=== PATIENT | female | born 1995 | race African-American/Black ===

== ENCOUNTER 2020-01-21 05:50 | Inpatient (IN) | payer OTHER, SELFPAY ==
[2020-01-21] VITALS (139 sets, daily range): BP systolic 77–145; BP diastolic 43–84; PULSE 72–123; RESP 18; TEMP 36.6; O2SAT 98–100; BMI 22.0
--- NOTE | 2020-01-21 06:16 | WPDANESEPP ---
Anes - Eval Pre Procedure Procedure: Labor epidural Date/Time: 01/21/20 06:16 Surgeon: Kraig Preop Diagnosis: pain during labor Pre Op Diagnosis: Induction of Labor Patient Data Age: 24 Gender: F Height: Weight: Allergies Allergy/AdvReac Type Severity Reaction Status Date / Time Penicillins Allergy Mild HIVES Verified 07/20/12 14:40 Sulfa (Sulfonamide Allergy Hives Verified 12/30/19 12:52 Antibiotics) Home Medications Medication Instructions Recorded Confirmed Type PNV cmb#95-ferrous fumarate-FA 1 tablet PO DAILY 12/30/19 12/30/19 History [] albuterol mcg INHALATION 12/30/19 History Patient hx anesthesia problems: none Family hx anesthesia problems: none PMFSH Past Medical History Medical History (Updated 01/21/20 @ 06:16 by Sandra Fry CRNA) Asthma Social History Social History Substance use: never Gender identity (if verbalized by the patient): Female Spiritual care concerns: No Exam Day of Procedure 01/21/20 06:16
--- NOTE | 2020-01-21 07:15 | LDADM ---
This patient, Jeanette Chua, was admitted to Labor/Delivery/Recovery 102 on 01/21/20 at 05:50. Plans for labor, pain management and were discussed with patient. Patient/family oriented to hospital policies and general routines including ID bracelet, bed and alarms, visiting hours, pain management, procedures, bathroom and other care routines, personal items, smoking policy, room service/diet and guest tray routines, infant security routines, call light, and visiting hours. Patient/Family are encouraged to report perceived risks to care and to ask questions if they do not understand what they are told or what they should do. See OBIX for further documentation.
[2020-01-21 07:25] LABS: Basophils Percent Auto 0.3 % (0.2-1.2); Eosinophils Absolute Auto 0.1 K/mm3 (0-0.3); Eosinophils Percent Auto 1.3 % (0-4.4); Hematocrit 32.7 % (37.0-47.0); Hemoglobin 10.5 g/dL (12.0-15.0); Immature Granulocyte Absolute 0.03 K/mm3 (0.00-0.031); Immature Granulocyte Percent A 0.5 % (0-0.5); Lymphocytes Absolute Auto 1.68 K/mm3 (0.9-3.2); Lymphocytes Percent Auto 26.8 % (18.3-44.2); Mean Corpuscular HGB Conc 32.1 g/dl (32-36); Mean Corpuscular Hemoglobin 28.8 pg (26-34); Mean Corpuscular Volume 89.8 fl (80-100); Mean Platelet Volume 9.7 fl (7.4-10.4); Monocytes Absolute Auto 0.6 K/mm3 (0.1-0.6); Monocytes Percent Auto 9.7 % (2.6-8.5); Neutrophils Absolute Auto 3.8 K/mm3 (1.3-6.7); Neutrophils Percent Auto 61.4 % (45.5-73.1); Platelet Count Result 205 k/mm3 (150-375); Red Blood Count 3.64 M/mm3 (4.2-5.4); White Blood Count 6.3 K/mm3 (4.5-10.0)
--- NOTE | 2020-01-21 08:01 | WPDOBADMIT ---
Obstetrics - Admit Note Admission Note: record reviewed. No pertinent additions to the history and/or any subsequent changes in the physical findings that are not consistent with the expected course of the were found. Additions to the history and/or subsequent changes in the physical findings follow. eIOL 39 weeks, uncomplicated. /post. Pit and AROM. GBS neg. FHT category 1.
[2020-01-21] MEDS: LACTATED RINGERS 1,000 ML 125 ML IV CONT ×2 (08:08→11:03)
[2020-01-21] MEDS: OXYTOCIN 30 UNITS/NS 500 ML 30 UNITS/500 ML BAG IV CONT (08:10)
--- NOTE | 2020-01-21 10:41 | PM.OBPNVD ---
OB - PN: Subj Subjective Date/time seen: 01/21/20 10:41 AROM - clear - 4/50/-2 Reassuring FHT - to have epidural OB - PN: Obj Data Labs CBC & Chem 7: 01/21/20 07:09 Labs: Laboratory Results - last 24 hr 01/21/20 01/21/20 07:09 07:09 WBC 6.3 RBC 3.64 L Hgb 10.5 L Hct 32.7 L MCV 89.8 MCH 28.8 MCHC 32.1 RDW 15.0 H Plt Count 205 MPV 9.7 Immature Gran % (Auto) 0.5 Neut % (Auto) 61.4 Lymph % (Auto) 26.8 [place] % (Auto) 9.7 H Eos % (Auto) 1.3 Baso % (Auto) 0.3 Lymph # (Auto) 1.68 [place] # (Auto) 0.6 Eos # (Auto) 0.1 Baso # (Auto) 0.0 Abs Immat Gran (auto) 0.03 Absolute Neuts (auto) 3.8 Absolute Nucleated RBC 0.0 Nucleated RBC % 0.0 Blood Type O Positive Antibody Screen Negative OB - PN A/P Time Spent With Patient Time: Total time spent is greater than 50% in coordination of care (as documented) at patient's floor/unit and/or counseling patient:
[2020-01-21 10:53] LABS: Rapid Plasma Reagin Non-Reactive (NonReactive)
--- NOTE | 2020-01-21 17:19 | P.PNOB_ITS ---
OB - PN: Subj Subjective Date/time seen: 01/21/20 17:19 Narrative: comfortable. 9cm. FHT category 1. Anticipate . OB - PN: Obj Data Labs CBC & Chem 7: 01/21/20 07:09 Labs: Laboratory Results - last 24 hr 01/21/20 01/21/20 01/21/20 07:09 07:09 07:09 WBC 6.3 RBC 3.64 L Hgb 10.5 L Hct 32.7 L MCV 89.8 MCH 28.8 MCHC 32.1 RDW 15.0 H Plt Count 205 MPV 9.7 Immature Gran % (Auto) 0.5 Neut % (Auto) 61.4 Lymph % (Auto) 26.8 [place] % (Auto) 9.7 H Eos % (Auto) 1.3 Baso % (Auto) 0.3 Lymph # (Auto) 1.68 [place] # (Auto) 0.6 Eos # (Auto) 0.1 Baso # (Auto) 0.0 Abs Immat Gran (auto) 0.03 Absolute Neuts (auto) 3.8 Absolute Nucleated RBC 0.0 Nucleated RBC % 0.0 RPR Non-reactive Blood Type O Positive Antibody Screen Negative OB - PN A/P Time Spent With Patient Time: Total time spent is greater than 50% in coordination of care (as documented) at patient's floor/unit and/or counseling patient:
--- NOTE | 2020-01-21 19:35 | PM.OBPRVD ---
OB - Delivery Note Procedure Delivery date: 01/21/20 Procedure: events: Labor Induction Induction method: per pitocin protocol Delivery monitor: external FHT Route of delivery: Laceration Description: None Estimated blood loss (mL): 300 Anesthesia type: Epidural Disposition: floor Narrative: With adequate expulsive efforts by the mother, the baby's head was delivered OA. The baby's anterior shoulder was delivered under the pubic symphysis without difficulty. The posterior shoulder and the rest of the baby delivered without difficulty. The infant was placed on the mothers chest and suctioned and stimulated. The cord was clamped and cut after 30 seconds. Mother and baby both stable. Baby Date of : 01/21/20 Time of : 19:20 Weeks of gestation at delivery: 39 gender: Female Weight (pounds): 7 Weight (ounces): 6 presentation: vertex position: Right Occiput Anterior Placenta delivery description: Spontaneous cord vessel description: 3 Vessels and Nuchal Cord score one minute: 8 score five minutes: 8
[2020-01-21] MEDS: OXYTOCIN 30 UNITS/NS 500 ML 30 UNITS/500 ML BAG 125 UNITS IV CONT (20:00)
[2020-01-21] MEDS: IBUPROFEN 600 MG TABLET PO (21:41)
[2020-01-21] MEDS: WITCH HAZEL 40 PADS 1 PAD TOPICAL (21:42)
[2020-01-21] MEDS: BENZOCAINE 20% AER SPR (*SP) 56 GM CAN 1 SPRAY TOPICAL (21:42)
--- NOTE | 2020-01-21 22:04 | OBPPTRN ---
Patient transferred to post room #277 via wheelchair. Support person present. Oriented to unit, room, information board, rooming in, admission packet and security measures. Patient verbalizes understanding.
[2020-01-22] MEDS: IBUPROFEN 600 MG TABLET PO (03:53)
[2020-01-22 05:32] LABS: Hematocrit 29.9 % (37.0-47.0); Hemoglobin 9.6 g/dL (12.0-15.0)
[2020-01-22 07:40] VITALS: BP 97/57; PULSE 74; RESP 18; TEMP 37.3; O2SAT 100
--- NOTE | 2020-01-22 07:54 | P.PNOB_ITS ---
OB - PN: Subj Subjective Date/time seen: 01/22/20 07:54 Patient comments: no complaints and pain well controlled baby status: doing well [place] feeding status: exclusively bottle feeding Narrative: Some back pain at epidural site. Otherwise doing great! Home tomorrow. OB - PN: Obj Data Labs CBC & Chem 7: 01/22/20 03:59 Labs: Laboratory Results - last 24 hr 01/21/20 01/21/20 01/22/20 07:09 07:09 03:59 Hgb 9.6 L Hct 29.9 L RPR Non-reactive Blood Type O Positive Antibody Screen Negative OB - PN A/P Plan day: 1 Plan: routine care Time Spent With Patient Time: Total time spent is greater than 50% in coordination of care (as documented) at patient's floor/unit and/or counseling patient: Time with patient: less than 15 minutes Exam Narrative: Exam Narrative: NAD abdomen soft, nontender, fundus firm below the umbilicus Extremities nontender, no edema
[2020-01-22] MEDS: ACETAMINOPHEN 325 MG TABLET 650 MG PO (08:32)
--- NOTE | 2020-01-22 09:51 | WPDANLDPN2 ---
Anes-Prog Note L&D Date/Time: 01/22/20 09:51 Comfortable throughout: labor and delivery Neuraxial method: epidural Epidural/Spinal procedure site: clean & non-tender Neuro status: Neuro function grossly intact. Cardiovascular status: normal Respiratory status: normal Airway patency: baseline Mental status: baseline Post-Op hydration status: normal Vital Signs: Last Vital Signs Temp 37.3 C 01/22/20 07:40 Pulse 74 01/22/20 07:40 Resp 18 01/22/20 07:40 BP 97/57 L 01/22/20 07:40 Pulse Ox 100 01/22/20 07:40 Pain score (VAS): 0 I/O: Intake & Output 01/21/20 01/22/20 01/22/20 23:59 07:59 15:59 Intake Total 1500 500 Output Total 64 Balance 1436 500 Post-procedural complaints: none Patient feedback: Patient satisfied with anesthetic care.
[2020-01-22] MEDS: DOCUSATE SODIUM LIQ 100 MG/10 ML UDC PO ×2 (11:10→19:24)
[2020-01-22] MEDS: IBUPROFEN SUSPENSION 200 MG/10 ML UDC 600 MG PO ×2 (11:11→16:45)
[2020-01-22] MEDS: FERROUS SULFATE LIQUID 325 MG/7.4 ML ELIXIR PO ×2 (11:11→19:24)
[2020-01-22] MEDS: ACETAMINOPHEN ELIXIR 325 MG/10.15 ML UDC 650 MG PO (16:46)
[2020-01-22 20:00] VITALS: BP 107/54; PULSE 73; RESP 16; TEMP 36.7; O2SAT 98
[2020-01-23] MEDS: IBUPROFEN SUSPENSION 200 MG/10 ML UDC 600 MG PO (00:28)
[2020-01-23] MEDS: ACETAMINOPHEN ELIXIR 325 MG/10.15 ML UDC 650 MG PO ×2 (00:28→09:08)
[2020-01-23 07:40] VITALS: BP 107/73; PULSE 80; RESP 18; TEMP 36.9; O2SAT 99
--- NOTE | 2020-01-23 07:58 | PM.OBPNVD ---
OB - PN: Subj Subjective Date/time seen: 01/23/20 07:58 Patient comments: no complaints baby status: doing well OB - PN: Obj Data Labs CBC & Chem 7: 01/22/20 03:59 OB - PN A/P Plan day: 2 Plan: routine care and discharge home (F/U in 4 weeks) Time Spent With Patient Time: Total time spent is greater than 50% in coordination of care (as documented) at patient's floor/unit and/or counseling patient: Time with patient: less than 15 minutes Review of Systems Review of Systems: All systems reviewed & are unremarkable except as noted in HPI and below Exam Narrative: Exam Narrative: Fundus firm and vaginal flow controlled. No lower ext redness, warmth, or edema. Negative homans. Const: General: comfortable Chest: Breast/axilla inspection: normal inspection of the breasts Resp: Effort & Inspection: normal respiratory effort Cardio: Rate: regular rate GI: GI Palp: Yes Soft to palpation Psych: Appearance: grossly normal Affect: normal affect Attitude: cooperative Thought content: Yes Normal thought content present Judgement: Good judgement present (Psych)
--- NOTE | 2020-01-23 08:00 | PM.OBDSVD ---
DS: Admitting Diagnosis Admitting Diagnosis Admitting Diagnosis: Induction of Labor OB - DS: Summary OB Procedures : None OB Procedures Intrapartum: Spontaneous Vag Delivery OB Procedures: : None Time Spent with Patient Time attestation: Total time spent providing and/or coordinating discharge services: Discharge Plan Discharge Discharging Clinician: Farheen Rodríguez Patient Disposition: Home, Self-Care Activity: pelvic rest Diet: as tolerated Patient Instructions: Antibiotic Form Stand Alone Forms: General Discharge Information Follow-up/Referrals: Jeni Cornell MD [Physician] - Discharge Medications: New ferrous sulfate 220 mg (44 mg iron)/5 mL Elixir 325 mg PO BID Qty: 473 RF: 0 Continued albuterol 90 mcg/actuation Aerosol INHALATION RF: 0 PNV cmb#95-ferrous fumarate-FA [] 28 mg iron- 800 mcg Tablet 1 tablet PO DAILY RF: 0 Date of admission: 01/21/20 05:50 Primary Care Provider: PHYSICIAN,P[employer] INSTRUCTOR Admitting Provider: Jeni Cornell Attending physician on admission: Jeni Cornell Condition: Stable
--- NOTE | 2020-01-23 08:49 | PC.NURSE ---
Abdominal binder and incentive spirometer given to pt and explained use and purpose of each. Pt states understanding.
[2020-01-23] MEDS: DOCUSATE SODIUM LIQ 100 MG/10 ML UDC PO (09:08)
[2020-01-23] MEDS: FERROUS SULFATE LIQUID 325 MG/7.4 ML ELIXIR PO (09:09)
[2020-01-24 08:25] VITALS: BP 129/80; PULSE 76; RESP 16; TEMP 36.8
== END 2020-01-23 11:20 | disposition home or self-care (01) | DRG 560 ==
LOC: ANHLDR 07:35 → ANHOB2 01-23 08:00 → ANHLDR 01-24 17:42 → ANHOB2 01-24 17:42
PROVIDERS: Admitting Provider Obstetrics & Gynecology; Visit Provider Obstetrics & Gynecology
DX: O69.81X0 Labor and delivery complicated by cord around neck, without compression, not applicable or unspecified (principal); Z3A.39 39 weeks gestation of pregnancy; Z37.0 Single live birth
CPT/HCPCS: 36415; 85014; 85018; 85025; 86592; 86850; 86900; 86901; A9270; J2590; J2795; J7120

== ENCOUNTER 2021-12-22 09:11 | Emergency (ER) | payer OTHER, SELFPAY ==
--- NOTE | ~2021-12-22 | CT_ITS ---
EXAMINATION: CT abdomen pelvis w con DATE: 12/22/2021 14:55 INDICATION: Low abdominal pain. TECHNIQUE: Computed tomography (CT) of the abdomen and pelvis was performed with 100 mL Omnipaque 350 intravenous contrast. Automated exposure control and iterative reconstruction technique were employe d. The dose-length product was 315.86 mGy-cm. COMPARISON: None. FINDINGS: The visualized portions of the lung bases are clear without pneumonia or pleural effusion. The heart size is normal. No pericardial effusion. The liver demonstrates focal steatosis in the gall bladder fossa. There are gallstones in the gallbladder, which is normal in size. The spleen, pancreas , adrenal glands, and kidneys are normal. There are no dilated loops of bowel. The appendix is normal . There are no pathologically enlarged lymph nodes. There is physiologic fluid in the pelvis. The bon es are unremarkable. IMPRESSION: 1. Cholelithiasis. Reviewed, dictated and finalized at location B. IMPRESSION: 1. Cholelithiasis.
--- NOTE | ~2021-12-22 | US_ITS ---
EXAMINATION: US pelvic complete DATE: 12/22/2021 12:32 INDICATION: Pelvic pain. TECHNIQUE: Multiple transabdominal sonographic images of the pelvis were obtained. COMPARISON: None. FINDINGS: The uterus measures 7.8 x 5.1 x 3.9 cm. There is no free fluid in the pelvis. The endometrial complex measures 5 mm in thickness. The ovaries are not visualized. IMPRESSION: 1. Normal uterus. Ovaries not visualized. Reviewed, dictated and finalized at location B.
[2021-12-22 09:18] VITALS: BP 141/71; PULSE 84; RESP 16; TEMP 37; O2SAT 100
[2021-12-22 09:58] LABS: Alanine Aminotransferase 19 U/L (6-35); Albumin Level 4.5 g/dL (3.5-5.1); Alkaline Phosphatase 52 U/L (38-126); Anion Gap 13 mmol/L (8-16); Aspartate Amino Transferase 28 U/L (14-36); Bilirubin,Total 0.5 mg/dL (0.2-1.3); Blood Urea Nitrogen 10 mg/dL (7-17); Calcium 9.1 mg/dL (8.4-10.2); Carbon Dioxide 21 mmol/L (22-30); Chloride 104 mmol/L (98-107); Estimated CRCL calculation 113 ml/min; Estimated Glomerular Filt Rate > 60; Glucose 90 mg/dL (65-110); Lipase 54 U/L (23-300); Potassium 3.6 mmol/L (3.4-5.0); Sodium 138 mmol/L (137-145)
--- NOTE | 2021-12-22 12:00 | PC.NURSE ---
pt wheeled to room 7 with open bag of chips and bottle of tea
--- NOTE | 2021-12-22 12:06 | ED.ABDPAIN ---
HPI - Abdominal Pain General Chief Complaint: Abdominal Pain Stated Complaint: abd pain, hx pelvic congestion Time Seen by Provider: 12/22/21 12:04 Source: patient Limitations: no limitations History of Present Illness HPI narrative: Patient is a 26-year-old female presenting to the emergency department for evaluation of lower abdominal pain. Patient reports onset lower abdominal pain yesterday that is aching in nature. Patient reports this in her lower pelvic area. She denies any vaginal bleeding or discharge. Patient states that she very has normal menstrual cycles with LMP beginning of December. Patient states she is currently in the middle of her cycle. She denies any flank pain. Patient has not taken any medication for pain. She denies fever, chills, nausea or vomiting. She denies recent intercourse. She denies history of sex transmitted infection. Patient does not believe she is . Patient denies focal pain in the right lower quadrant or flanks. Patient denies dysuria, hematuria, diarrhea or constipation. She denies abdominal distention. Patient states she has been diagnosed with pelvic congestion syndrome. Related Data Home Medications Medication Instructions Recorded Confirmed albuterol 90 mcg/actuation aerosol mcg inhalation 12/30/19 inhaler vit no.95-ferrous 1 tablet PO DAILY 12/30/19 12/30/19 fumarate 28 mg-folic acid 800 mcg tablet () Allergies Allergy/AdvReac Type Severity Reaction Status Date / Time Penicillins Allergy Mild HIVES Verified 12/22/21 09:22 Sulfa (Sulfonamide Allergy Hives Verified 12/22/21 09:22 Antibiotics) trimethoprim Allergy Unknown Verified 12/22/21 09:22 Review of Systems Review of Systems: CONSTITUTIONAL: Denies fever, chills, or sweats. EYES: Denies visual changes, redness, or discharge. ENT: Denies rhinorrhea, congestion, sore throat, or otalgia. CARDIOVASCULAR: Denies chest pain, palpitations, or edema. RESPIRATORY: Denies cough or dyspnea. GASTROINTESTINAL: Reports pelvic pain, denies nausea, vomiting, diarrhea GENITOURINARY: Denies dysuria or hematuria. Denies vaginal bleeding or discharge. SKIN: Denies rash or itching. MUSCULOSKELETAL: Denies back pain, joint pain, or myalgia. NEUROLOGIC: Denies headache, numbness, or weakness. [facility] Past Medical History Medical History (Updated 12/22/21 @ 15:08 by Margie Ramos MD) Abdominal pain Asthma Pelvic congestion syndrome Social History Social History Smoking status: Never smoker Substance use: never Gender identity (if verbalized by the patient): Female Spiritual care concerns: No Exam Narrative: GENERAL: Awake, alert, conversant HEAD: Normocephalic, atraumatic. EYES: PERRLA and EOMI. ENT: Nares clear, no rhinorrhea or epistaxis. Mucous membranes moist. NECK: Supple. CHEST: No respiratory distress, breathing even and non labored HEART: Regular rate, sinus rhythm ABDOMEN:Non distended, non tender on exam. No reproducible tenderness in all 4 quadrants. No rebound, rigidity or guarding. No flank tenderness bilaterally. EXTREMITIES: Normal range of motion. No edema. SKIN: Warm, dry, no rash. NEURO:No focal deficits. Alert and oriented x3 Course Vital Signs Vital signs: Vital Signs Temperature 37.0 C 12/22/21 09:18 Pulse Rate 84 12/22/21 09:18 Respiratory Rate 16 12/22/21 09:18 Blood Pressure 141/71 H 12/22/21 09:18 Pulse Oximetry 100 12/22/21 09:18 Oxygen Delivery Room Air 12/22/21 09:18 Temperature 37.0 C 12/22/21 09:18 Pulse Rate 84 12/22/21 09:18 Respiratory Rate 16 12/22/21 09:18 Blood Pressure 141/71 H 12/22/21 09:18 Pulse Oximetry 100 12/22/21 09:18 Oxygen Delivery Room Air 12/22/21 09:18 MDM - Abdominal Pain MDM Narrative Medical decision making narrative: Patient presenting for evaluation of abdominal pain in the lower abdomen. At the time
[2021-12-22 13:22] LABS: Basophils Absolute Auto 0.1 K/mm3 (0.0-0.1); Basophils Percent Auto 0.9 % (0.2-1.2); Eosinophils Absolute Auto 0.2 K/mm3 (0-0.3); Hematocrit 38.6 % (37.0-47.0); Hemoglobin 12.6 g/dL (12.0-15.0); Immature Granulocyte Absolute 0.02 K/mm3 (0.00-0.031); Immature Granulocyte Percent A 0.3 % (0-0.5); Lymphocytes Absolute Auto 2.48 K/mm3 (0.9-3.2); Lymphocytes Percent Auto 31.9 % (18.3-44.2); Mean Corpuscular HGB Conc 32.6 g/dl (32-36); Mean Corpuscular Hemoglobin 30.4 pg (26-34); Monocytes Absolute Auto 0.4 K/mm3 (0.1-0.6); Monocytes Percent Auto 5.4 % (2.6-8.5); Neutrophils Absolute Auto 4.6 K/mm3 (1.3-6.7); Neutrophils Percent Auto 58.5 % (45.5-73.1); Platelet Count Result 346 k/mm3 (150-375); Red Blood Count 4.15 M/mm3 (4.2-5.4); Red Cell Distribution Width 13.7 % (11.5-14.5); White Blood Count 7.8 K/mm3 (4.5-10.0)
[2021-12-22 13:45] LABS: Add Urine Microscopic? YES; Appearance Urine Cloudy (Clear); Bacteria Urine Trace /hpf; Bilirubin Urine Negative (Negative); Blood Urine 1+ (Negative); Color Urine Yellow (Yellow); Glucose Urine UA Negative (Negative); Ketones Urine Negative (Negative); Leukocyte Esterase Ur Negative LEU/UL (Negative); Mucus Urine Rare /lpf; Nitrate Urine Negative (Negative); Protein Urine Negative (Negative); RBC Urine 0-2 /hpf (0-2); Specific Grav Ur 1.012 (1.001-1.035); Squamous Epithelial Cell Urine Moderate /hpf (Few); Urobilinogen Urine Negative mg/dL (<2.0); WBC Urine 0-3 /hpf
[2021-12-22] MEDS: ACETAMINOPHEN 500 MG TABLET 1000 MG PO (14:22)
[2021-12-22] MEDS: KETOROLAC (*BKC) 60 MG/2 ML VIAL 30 MG IM (14:22)
[2021-12-22 15:39] VITALS: BP 140/84; PULSE 86; RESP 18; O2SAT 99
== END 2021-12-22 15:44 | disposition home or self-care (01) ==
PROVIDERS: Emergency Medicine; Emergency Provider Emergency Medicine; PCP Physician Assistant
DX: K80.20 Calculus of gallbladder without cholecystitis without obstruction (principal); R31.9 Hematuria, unspecified; N94.89 Other specified conditions associated with female genital organs and menstrual cycle; R10.32 Left lower quadrant pain; R10.31 Right lower quadrant pain; J45.909 Unspecified asthma, uncomplicated
CPT/HCPCS: 36415; 74177; 76856; 80053; 81001; 81025; 83690; 85025; 96372; 99284; A9270; J1885; Q9967